=== PATIENT | male | born 1970 | race African-American/Black ===

== ENCOUNTER 2020-03-08 19:20 | Inpatient (IN) ==
[2020-03-08] MEDS ORDERED: SODIUM CHLORIDE 0.9% 1,000 ML IV STA ×3 (19:50→23:02)
[2020-03-08] MEDS ORDERED: levETIRAcetam 500 MG/5 ML VIAL IV ONE (20:04)
[2020-03-08 20:35] LABS: Basophils % 0.3 % (0.0-0.8); Hematocrit 28.4 VOL% (42.0-52.0); Hemoglobin 9.8 GM/DL (14.0-18.0); Immature Granulocytes % 0.6 %; Immature Granulocytes Absolute 0.09 #; Lymphocytes # 0.6 10*3/uL (1.4-4.0); Lymphocytes % 3.9 % (21.2-54.2); Mean Corpuscular HGB Conc 34.5 GM/DL (32-36); Mean Corpuscular Volume 105.2 FL (87-102); Monocytes % 3.6 % (1.7-12.7); NRBC # 0.02 10*3/uL; Neutrophils % 91.6 % (38.7-73.9); Platelet Count 128 T/CUMM (130-400); Red Cell Distribution Width 12.7 % (9.3-17.3); White Blood Count 14.2 T/CUMM (4-12)
[2020-03-08 20:57] LABS: Albumin 3.7 G/DL (3.4-5.0); Bilirubin,Total 2.1 MG/DL (0.2-1.0); Calcium 8.9 MG/DL (8.5-10.1); Osmolality,Calculated 267.8 MOS/KG (273-304); Total Protein 7.9 G/DL (6.4-8.3)
[2020-03-08 21:00] LABS: Anisocytosis 2+; Lymphocytes 7 % (20-55); Microcytosis 2+; Segmented Neutrophils 91 % (50-85); Stomatocytes 2+; Total Cells Counted 100
[2020-03-08] MEDS ORDERED: LIDOCAINE 1%/EPI INJ 20 ML VIAL ONE (21:58)
[2020-03-08] MEDS ORDERED: MAGNESIUM SULF RIDER 2 GM in PREMIX 1 EACH IV STA (22:56)
[2020-03-08] MEDS ORDERED: POTASSIUM CHLORIDE 20 MEQ TABLET PO STA (22:59)
[2020-03-09 01:01] LABS: Barbiturates Screen,Urine Negative (Negative); Benzodiazepines Screen,Urine Negative (Negative); Cannabinoid Screen,Urine Negative (Negative); Opiate Screen,Urine Negative (Negative); Phencyclidine Screen,Urine Negative (Negative)
[2020-03-09] MEDS ORDERED: ONDANSETRON 4 MG/2 ML VIAL IV PRN (01:30)
[2020-03-09] MEDS ORDERED: GLUCAGON 1 MG VIAL IM PRN (01:30)
[2020-03-09] MEDS ORDERED: DEXTROSE 50% 25 GM/50 ML SYRINGE IV PRN (01:30)
[2020-03-09] MEDS ORDERED: ACETAMINOPHEN 325 MG TABLET PO PRN (01:30)
[2020-03-09] MEDS ORDERED: SODIUM CHLORIDE 0.9% 1,000 ML IV SCH (01:30)
[2020-03-09] MEDS ORDERED: MAGNESIUM SULF RIDER 2 GM in PREMIX 1 EACH IV PRN (01:35)
[2020-03-09] MEDS ORDERED: MAGNESIUM SULF RIDER 4 GM in PREMIX 1 EACH IV PRN (01:35)
[2020-03-09] MEDS ORDERED: SODIUM CHLORIDE 0.9% 1,000 ML IV PRN ×2 (01:36→14:27)
[2020-03-09] MEDS ORDERED: LORazepam 2 MG/1 ML VIAL IV PRN (01:38)
[2020-03-09] MEDS ORDERED: INFLUENZA VIRUS VACCINE 0.5 ML SYRINGE IM ONE (04:29)
[2020-03-09] MEDS: GABAPENTIN 300 MG CAPSULE PO SCH ×2 (10:12→20:56)
[2020-03-09] MEDS: PANTOPRAZOLE 40 MG TABLET PO SCH (10:12)
[2020-03-09] MEDS: FOLIC ACID 1 MG TABLET PO SCH (10:12)
[2020-03-09] MEDS: THIAMINE 100 MG TABLET PO SCH (10:12)
[2020-03-09] MEDS: DIVALPROEX 500 MG TABLET PO SCH ×2 (10:13→20:57)
[2020-03-09 11:31] LABS: Basophils # 0.1 10*3/uL (0.0-0.2); Basophils % 0.4 % (0.0-0.8); Hematocrit 22.9 VOL% (42.0-52.0); Immature Granulocytes Absolute 0.13 #; Lymphocytes # 1.4 10*3/uL (1.4-4.0); Mean Corpuscular HGB Conc 34.1 GM/DL (32-36); Mean Corpuscular Volume 97.4 FL (87-102); Mean Platelet Volume 11.6 FL (9.6-12.0); Monocytes % 5.1 % (1.7-12.7); Neutrophils % 82.5 % (38.7-73.9); Red Blood Count 2.35 MC/CUMM (3.8-5.5); Red Cell Distribution Width 15.9 % (9.3-17.3); White Blood Count 12.4 T/CUMM (4-12)
[2020-03-09 11:32] LABS: Hemoglobin 7.8 GM/DL (14.0-18.0)
[2020-03-09 11:33] LABS: Platelet Count 81 T/CUMM (130-400)
[2020-03-09 11:47] LABS: Band Neutrophils 4 % (0-10); Hypochromasia 2+; Lymphocytes 10 % (20-55); Microcytosis 1+; Ovalocytes Slight; Platelet Estimate Decreased; Segmented Neutrophils 85 % (50-85); Total Cells Counted 100
[2020-03-09 11:48] LABS: Albumin 3.2 G/DL (3.4-5.0); Bilirubin,Total 1.6 MG/DL (0.2-1.0); Calcium 8.3 MG/DL (8.5-10.1); Osmolality,Calculated 261.5 MOS/KG (273-304); Total Protein 6.9 G/DL (6.4-8.3)
[2020-03-09 12:03] LABS: Folate > 24.0 NG/ML (5.4-24.0); Vitamin B12 377 PG/ML (211-911)
[2020-03-09] MEDS: SODIUM CHLOR 0.9% KCL 40 MEQ 40 MEQ/1,000 ML BAG IV SCH ×2 (12:19→21:45)
[2020-03-09 13:59] LABS: Hematocrit 21.1 VOL% (42.0-52.0); Hemoglobin 7.4 GM/DL (14.0-18.0)
[2020-03-09] MEDS: INSULIN REGULAR 100 UNIT/ML SUBCUT SCH ×3 (14:28→21:58)
[2020-03-09] MEDS: CLINDAMYCIN 300 MG CAPSULE PO SCH ×2 (14:34→23:17)
[2020-03-10 04:56] LABS: Basophils % 0.4 % (0.0-0.8); Eosinophils # 0.1 10*3/uL (0.0-0.87); Eosinophils % 0.5 % (0.00-10.9); Hematocrit 23.1 VOL% (42.0-52.0); Hemoglobin 8.1 GM/DL (14.0-18.0); Immature Granulocytes % 0.6 %; Immature Granulocytes Absolute 0.06 #; Lymphocytes # 1.5 10*3/uL (1.4-4.0); Lymphocytes % 14.1 % (21.2-54.2); Mean Corpuscular HGB Conc 35.1 GM/DL (32-36); Mean Corpuscular Volume 94.7 FL (87-102); Mean Platelet Volume 11.7 FL (9.6-12.0); Monocytes % 5.4 % (1.7-12.7); Platelet Count 81 T/CUMM (130-400); Red Blood Count 2.44 MC/CUMM (3.8-5.5); Red Cell Distribution Width 16.4 % (9.3-17.3); White Blood Count 10.8 T/CUMM (4-12)
[2020-03-10 05:13] LABS: Bilirubin,Total 0.9 MG/DL (0.2-1.0); Calcium 8.6 MG/DL (8.5-10.1); Osmolality,Calculated 264.2 MOS/KG (273-304); Total Protein 6.8 G/DL (6.4-8.3)
[2020-03-10 05:24] LABS: Band Neutrophils 5 % (0-10); Eosinophils 1 % (0-10); Lymphocytes 14 % (20-55); Segmented Neutrophils 74 % (50-85); Total Cells Counted 100
[2020-03-10 05:25] LABS: Hypochromasia 1+; Microcytosis 1+; Platelet Estimate Decreased
[2020-03-10] MEDS: CLINDAMYCIN 300 MG CAPSULE PO SCH ×2 (06:25→14:30)
[2020-03-10] MEDS: SODIUM CHLOR 0.9% KCL 40 MEQ 40 MEQ/1,000 ML BAG IV SCH (06:25)
[2020-03-10] MEDS ORDERED: POTASSIUM CHLORIDE 20 MEQ TABLET PO ONE (09:01)
[2020-03-10] MEDS: DIVALPROEX 500 MG TABLET PO SCH (11:14)
[2020-03-10] MEDS: FOLIC ACID 1 MG TABLET PO SCH (11:14)
[2020-03-10] MEDS: GABAPENTIN 300 MG CAPSULE PO SCH (11:14)
[2020-03-10] MEDS: THIAMINE 100 MG TABLET PO SCH (11:15)
[2020-03-10] MEDS: PANTOPRAZOLE 40 MG TABLET PO SCH (11:15)
[2020-03-10] MEDS: POTASSIUM CHLORIDE 20 MEQ TABLET PO PRN ×3 (11:59→16:44)
[2020-03-10 14:39] VITALS: BP 117/72
[2020-03-10 16:00] LABS: Hematocrit 27.8 VOL% (42.0-52.0)
[2020-03-10 16:02] LABS: Hemoglobin 9.8 GM/DL (14.0-18.0)
== END 2020-03-10 17:30 | disposition home or self-care (01) | DRG 137 ==
LOC: EDBD → EDUNIT# → N.EDINP 19:20 → N.ED 19:20 → N.3E 03-09 03:43
PROVIDERS: ADMIT Internal Medicine; ATTEND Internal Medicine

== ENCOUNTER 2020-06-04 02:40 | Observation (INO) ==
[2020-06-04] MEDS ORDERED: SODIUM CHLORIDE 0.9% 1,000 ML IV STA (02:59)
[2020-06-04 03:22] LABS: Bilirubin,Urine Negative (Negative); Blood, Urine Negative (Negative); Glucose,Urine (UA) 50 mg/dL (Negative); Ketones,Urine 5 mg/dL (Negative); Mucus,Urine Occasional /LPF (Occasional); Nitrite,Urine Negative (Negative); Protein,Urine Negative; RBC,Urine <1 /HPF (0-4); Urine Appearance CLEAR (Clear); Urine Color Straw (Yellow); Urine Specific Gravity 1.014 (1.001-1.035); Urine Urobilinogen < 2.0 EU/DL (0.2-1.0)
[2020-06-04 03:35] LABS: Basophils # 0.1 10*3/uL (0.0-0.2); Basophils % 1.5 % (0.0-0.8); Eosinophils % 0.4 % (0.00-10.9); Hematocrit 37.3 VOL% (42.0-52.0); Hemoglobin 12.4 GM/DL (14.0-18.0); Immature Granulocytes % 0.6 %; Immature Granulocytes Absolute 0.04 #; Lymphocytes # 1.6 10*3/uL (1.4-4.0); Lymphocytes % 23.2 % (21.2-54.2); Mean Corpuscular HGB Conc 33.2 GM/DL (32-36); Mean Corpuscular Volume 106.9 FL (87-102); Mean Platelet Volume 10.7 FL (9.6-12.0); Monocytes % 8.1 % (1.7-12.7); Neutrophils % 66.2 % (38.7-73.9); Platelet Count 234 T/CUMM (130-400); Red Blood Count 3.49 MC/CUMM (3.8-5.5); Red Cell Distribution Width 14.6 % (9.3-17.3); White Blood Count 6.8 T/CUMM (4-12)
[2020-06-04 03:59] LABS: ABG Base Excess 0.3 MMOL/L (-2.5-2.5); ABG HCO3 22.8 MMOL/L (20-26); ABG PH 7.484 (7.35-7.45); ABG TCO2 23.7 MMOL/L (23-27)
[2020-06-04 04:01] LABS: ABG Oxygen Saturation 96.1 % (95-100)
[2020-06-04 04:04] LABS: Barbiturates Screen,Urine Negative (Negative); Benzodiazepines Screen,Urine Positive (Negative); Cannabinoid Screen,Urine Negative (Negative); Opiate Screen,Urine Negative (Negative); Phencyclidine Screen,Urine Negative (Negative)
[2020-06-04 04:31] LABS: Alanine Aminotransferase 27 U/L (16-61); Albumin 3.8 G/DL (3.4-5.0); Alkaline Phosphatase 70 U/L (45-117); Aspartate Amino Transferase 26 U/L (0-37); Bilirubin,Total < 0.39 MG/DL (0.2-1.0); Blood Urea Nitrogen 8 MG/DL (7-18); Calcium 9.3 MG/DL (8.5-10.1); Estimated Glom Filtration Rate 111 ML/MIN; Glucose 124 MG/DL (74-106); Osmolality,Calculated 277.4 MOS/KG (273-304); Sodium 140 MMOL/L (136-145); Total Protein 8.6 G/DL (5.0-7.5)
[2020-06-04 04:32] LABS: Carbon Dioxide 23 MMOL/L (21-32); Potassium 3.8 MMOL/L (3.5-5.1)
[2020-06-04] MEDS ORDERED: levETIRAcetam 500 MG/5 ML VIAL IV ONE (05:46)
[2020-06-04 06:00] LABS: ABG Base Excess -3.7 MMOL/L (-2.5-2.5); ABG HCO3 21.4 MMOL/L (20-26); ABG Oxygen Saturation 99.7 % (95-100); ABG PH 7.464 (7.35-7.45); ABG TCO2 16.5 MMOL/L (23-27)
[2020-06-04] MEDS ORDERED: METOPROLOL TARTRATE 5 MG/5 ML VIAL IV STA (06:19)
[2020-06-04] MEDS ORDERED: THIAMINE 200 MG/2 ML VIAL IV STA (09:36)
[2020-06-04] MEDS ORDERED: MIDAZOLAM 2 MG/2 ML VIAL IV STA ×2 (09:58→10:32)
[2020-06-04] MEDS ORDERED: cefTRIAXone 2,000 MG in SODIUM CHLORIDE 0.9% 100 ML IV ONE (11:28)
[2020-06-04] MEDS ORDERED: ACETAMINOPHEN 325 MG TABLET PO PRN (13:19)
[2020-06-04] MEDS ORDERED: ONDANSETRON 4 MG/2 ML VIAL IV PRN (13:19)
[2020-06-04] MEDS ORDERED: GLUCAGON 1 MG VIAL IM PRN (13:19)
[2020-06-04] MEDS ORDERED: DEXTROSE 50% 25 GM/50 ML VIAL IV PRN (13:19)
[2020-06-04] MEDS ORDERED: DOCUSATE SODIUM 100 MG CAPSULE PO PRN (13:19)
[2020-06-04] MEDS ORDERED: LORazepam 2 MG/1 ML VIAL IV PRN (13:19)
[2020-06-04] MEDS ORDERED: cefTRIAXone 1,000 MG VIAL ONE (14:25)
[2020-06-04] MEDS: SODIUM CHLORIDE 0.9% 1,000 ML IV SCH (16:41)
[2020-06-04] MEDS: LACTULOSE 20 GM/30 ML UDCUP PO SCH (20:41)
[2020-06-04] MEDS: ENOXAPARIN 40 MG/0.4 ML SYRINGE SUBCUT SCH (20:42)
[2020-06-04 22:16] LABS: Folate 2.3 NG/ML (5.38-24.0)
[2020-06-05] MEDS: SODIUM CHLORIDE 0.9% 1,000 ML IV SCH ×2 (03:41→10:52)
[2020-06-05 06:51] LABS: Basophils # 0.1 10*3/uL (0.0-0.2); Basophils % 0.7 % (0.0-0.8); Eosinophils % 0.4 % (0.00-10.9); Hematocrit 33.7 VOL% (42.0-52.0); Hemoglobin 11.6 GM/DL (14.0-18.0); Immature Granulocytes % 0.3 %; Immature Granulocytes Absolute 0.02 #; Lymphocytes # 2.4 10*3/uL (1.4-4.0); Lymphocytes % 32.3 % (21.2-54.2); Mean Corpuscular HGB Conc 34.4 GM/DL (32-36); Mean Corpuscular Volume 104.3 FL (87-102); Mean Platelet Volume 10.9 FL (9.6-12.0); Monocytes % 11.5 % (1.7-12.7); Neutrophils % 54.8 % (38.7-73.9); Platelet Count 242 T/CUMM (130-400); Red Blood Count 3.23 MC/CUMM (3.8-5.5); Red Cell Distribution Width 14.3 % (9.3-17.3); White Blood Count 7.3 T/CUMM (4-12)
[2020-06-05 07:11] LABS: Albumin 3.4 G/DL (3.4-5.0); Bilirubin,Total 1.3 MG/DL (0.2-1.0); Osmolality,Calculated 272.7 MOS/KG (273-304); Potassium 2.9 MMOL/L (3.5-5.1); Total Protein 7.9 G/DL (5.0-7.5)
[2020-06-05] MEDS ORDERED: MAGNESIUM SULF RIDER 4 GM in PREMIX 1 EACH IV PRN (07:58)
[2020-06-05] MEDS ORDERED: MAGNESIUM SULF RIDER 2 GM in PREMIX 1 EACH IV PRN (07:58)
[2020-06-05] MEDS: LACTULOSE 20 GM/30 ML UDCUP PO SCH ×2 (09:23→20:34)
[2020-06-05] MEDS: DIVALPROEX 500 MG TABLET PO SCH ×2 (09:23→20:35)
[2020-06-05] MEDS: GABAPENTIN 300 MG CAPSULE PO SCH ×2 (09:24→20:35)
[2020-06-05] MEDS: DIVALPROEX 250 MG TABLET PO SCH ×2 (09:24→20:35)
[2020-06-05] MEDS: PANTOPRAZOLE 40 MG TABLET PO SCH (09:25)
[2020-06-05] MEDS: FOLIC ACID 1 MG TABLET PO SCH (09:25)
[2020-06-05] MEDS: POTASSIUM CHLORIDE RIDER 10 MEQ in PREMIX 1 EACH IV PRN ×5 (09:27→17:07)
[2020-06-05] MEDS: ENOXAPARIN 40 MG/0.4 ML SYRINGE SUBCUT SCH (20:35)
[2020-06-06 06:45] LABS: Calcium 9.1 MG/DL (8.5-10.1); Osmolality,Calculated 274.5 MOS/KG (273-304); Potassium 3.6 MMOL/L (3.5-5.1)
[2020-06-06 07:32] VITALS: BP 141/94
[2020-06-06] MEDS: DIVALPROEX 250 MG TABLET PO SCH (08:20)
[2020-06-06] MEDS: GABAPENTIN 300 MG CAPSULE PO SCH (08:20)
[2020-06-06] MEDS: LACTULOSE 20 GM/30 ML UDCUP PO SCH (08:20)
[2020-06-06] MEDS: DIVALPROEX 500 MG TABLET PO SCH (08:20)
[2020-06-06] MEDS: PANTOPRAZOLE 40 MG TABLET PO SCH (08:20)
[2020-06-06] MEDS: FOLIC ACID 1 MG TABLET PO SCH (08:20)
[2020-06-06] MEDS ORDERED: levETIRAcetam 500 MG TABLET PO SCH (21:00)
== END 2020-06-06 13:46 | disposition home or self-care (01) ==
LOC: EDUNIT# → EDBD → N.EDINP 02:40 → N.ED 02:40 → SUATTDRO 13:19 → N.EDINP 14:55 → N.5E 15:19
PROVIDERS: ADMIT Internal Medicine; ATTEND Hospitalist